=== PATIENT | female | born 1990 | race Two or more races ===

== ENCOUNTER 2017-12-21 01:37 | Emergency (ER) | payer SELFPAY ==
[~2017-12-21] VITALS: Ht 165.1 cm; Wt 49.9 kg
[2017-12-21 02:31] VITALS: BP 150/70
== END 2017-12-21 03:30 | disposition left against medical advice (07) ==
LOC: ER 01:37
DX: F41.1 Generalized anxiety disorder (principal); Z53.21 Procedure and treatment not carried out due to patient leaving prior to being seen by health care provider